=== PATIENT | male | born 1970 | race Two or more races ===

== ENCOUNTER 2021-04-19 22:35 | Inpatient (IN) | payer MEDICARE, OTHER ==
[~2021-04-19] VITALS: Ht 165.1 cm; Wt 65.8 kg
--- NOTE | 2021-04-19 22:55 | NUR ---
Dr. Cook at bedside for MSE.
[2021-04-19] MEDS ORDERED: LACTULOSE 20 G/30 ML LIQUID UDC NG ONE (23:15)
--- NOTE | 2021-04-19 23:17 | NUR ---
Pt out of ER for CT.
[2021-04-19 23:30] LABS: CARBON DIOXIDE 25 mmol/L (21-32); CHLORIDE 99 mmol/L (98-107); CREATININE 0.6 mg/dL (0.6-1.3); GLUCOSE 238 mg/dL (74-106); HEMATOCRIT 39.7 % (36.7-47.1); MEAN CORPUSCULAR HEMOGLOBIN 35.1 uug (23.8-33.4); MEAN CORPUSCULAR VOLUME 98.8 fL (73.0-96.2); PLATELET COUNT (AUTO) 127 K/uL (152-348); POTASSIUM 3.2 mmol/L (3.5-5.1); UREA NITROGEN, BLOOD 5 mg/dL (7-18)
[2021-04-19 23:32] LABS: ETHANOL < 3 MG/DL (0-0)
[2021-04-19 23:36] LABS: ALANINE AMINOTRANSFERASE 24 U/L (16-63); ALKALINE PHOSPHATASE 97 U/L (50-136); ASPARTATE AMINOTRANSFERASE 44 U/L (15-37); BILIRUBIN,TOTAL 2.2 mg/dL (0.2-1.0); TOTAL PROTEIN, SERUM 6.9 g/dL (6.4-8.2)
[2021-04-19 23:37] LABS: ACETAMINOPHEN < 2.0 ug/mL (10-30)
[2021-04-20] MEDS ORDERED: LACTULOSE 20 G/30 ML LIQUID UDC ONE (00:18)
[2021-04-20] MEDS ORDERED: PANT40TA49 PO (00:40)
[2021-04-20] MEDS ORDERED: ACET-2154 PO (00:40)
[2021-04-20] MEDS ORDERED: IBUP100T54 PO (00:40)
[2021-04-20] MEDS ORDERED: BENA40TA8 PO (00:40)
[2021-04-20] MEDS ORDERED: INSU100I26 SQ ×2 (00:40→18:15)
--- NOTE | 2021-04-20 01:15 | NUR ---
Dr. Cook on panel call with Shani Wong NP. Patient accepted for admission to [facility], diagnosis: hepatic encephalopathy.
--- NOTE | 2021-04-20 01:15 | NUR ---
Called [facility] to page Shani Wong NP.
[2021-04-20] MEDS ORDERED: DEXTROSE 50% 50 ML DISP.SYRIN IV PRN (01:30)
[2021-04-20] MEDS ORDERED: MAGNESIUM HYDROXIDE 30 ML LIQUID UDC PO PRN (01:30)
[2021-04-20] MEDS ORDERED: Z GUARD REMEDY PASTE 57 GM TUBE TOP PRN (01:30)
[2021-04-20] MEDS ORDERED: ONDANSETRON 4 MG/2 ML VIAL IV PRN (01:30)
--- NOTE | 2021-04-20 01:32 | NUR ---
Report given to Rona LIRIANO Medsurg.
[2021-04-20 02:00] LABS: *BILIRUBIN,URIN NEGATIVE (NEGATIVE); *BLOOD, URINE NEGATIVE (NEGATIVE); *CLARITY,URINE CLEAR (CLEAR); *COLOR,URINE YELLOW (YELLOW); *KETONES,URINE NEGATIVE (NEGATIVE); *UROBILINOGEN,URINE >=8.0 E.U./dl (NORMAL); LEUKOCYTE ESTERASE ,URINE TRACE (NEGATIVE); NITRITE, URINE NEGATIVE (NEGATIVE); UGLUCOSE 2+ (NEGATIVE)
[2021-04-20 02:10] LABS: *AMPHETAMINE, URINE NEGATIVE (NEGATIVE); *CANNABINOID, URINE NEGATIVE (NEGATIVE); *COCCAINE, URINE NEGATIVE (NEGATIVE); *OPIATE, URINE NEGATIVE (NEGATIVE); *PHENCYCLIDINE SCREEN,URINE NEGATIVE (NEGATIVE)
[2021-04-20 02:15] LABS: BACTERIA,URINE MANY /HPF (NONE SEEN); RBC,URINE 0-3 /HPF (0-3)
[2021-04-20 03:30] VITALS: BP 145/92
--- NOTE | 2021-04-20 04:07 | NUR ---
Pt arrived in the unit at 0245 via gurney. Admitted to Med Surg for Hepatic Encephalopathy. AAO x2. On room air, no acute distress noted. Pertinent assessment done. Skin intact. Rapid influenza nasal aspirate sent to lab. IV on left forearm #20, patent and intact. Ascites noted. Generalized weakness noted. Safety measures maintained. Call light within reach. Will continue to monitor.
[2021-04-20] MEDS: PANTOPRAZOLE SODIUM 40 MG TABLET.DR PO SCH (06:15)
[2021-04-20] MEDS: BLOOD SUGAR DIAGNOSTIC 1 EACH STRIP VI SCH ×4 (06:36→20:22)
--- NOTE | 2021-04-20 08:30 | NUR ---
Patient received resting in bed. A&Ox2. On room air sating 96%. No c/o discomfort. Left forearm 20 gauge intact and flushed. Skin intact. Compliant with medication regimen. BS of 239 covered. Safety precautions in place. Will continue to monitor.
[2021-04-20] MEDS: LACTULOSE 20 G/30 ML LIQUID UDC PO SCH ×2 (08:36→16:58)
[2021-04-20] MEDS: AZITHROMYCIN 250 MG TABLET PO SCH (08:37)
[2021-04-20] MEDS: INSULIN REGULAR, HUMAN 300 UNIT/3 ML VIAL SQ PRN ×4 (08:40→20:20)
[2021-04-20 08:53] VITALS: BP 143/92
[2021-04-20] MEDS ORDERED: PANTOPRAZOLE SODIUM 40 MG TABLET.DR PO SCH (09:00)
[2021-04-20] MEDS ORDERED: AZITHROMYCIN 250 MG TABLET PO SCH (09:00)
[2021-04-20] MEDS ORDERED: BENAZEPRIL HCL 20 MG TABLET PO SCH (09:00)
[2021-04-20 13:45] VITALS: BP 141/69
[2021-04-20 16:20] VITALS: BP 136/81
[2021-04-20] MEDS ORDERED: INSU3INS6 SQ (18:08)
[2021-04-20] MEDS ORDERED: INSULIN GLARGINE,HUM 300 UNITS/3 ML CARTRIDGE SQ SCH (18:10)
[2021-04-20 20:15] VITALS: BP 143/84
[2021-04-20] MEDS ORDERED: ZOLPIDEM 5 MG TABLET PO PRN (21:00)
--- NOTE | 2021-04-20 21:00 | NUR ---
Plan of care explained; safety measures explained; call light within reach;
[2021-04-21 04:11] VITALS: BP 147/91
[2021-04-21] MEDS: BLOOD SUGAR DIAGNOSTIC 1 EACH STRIP VI SCH ×4 (06:20→20:27)
[2021-04-21] MEDS: PANTOPRAZOLE SODIUM 40 MG TABLET.DR PO SCH (06:20)
--- NOTE | 2021-04-21 06:21 | NUR ---
Pt rested well in between care; no acute distress; safety maintained; needs attended; VSS; continue to monitor; continue plan of care.
[2021-04-21 06:40] LABS: MEAN CORPUSCULAR HEMOGLOBIN 35.2 uug (23.8-33.4); PLATELET COUNT (AUTO) 155 K/uL (152-348)
[2021-04-21 06:59] LABS: ALANINE AMINOTRANSFERASE 24 U/L (16-63); ALKALINE PHOSPHATASE 113 U/L (50-136); ASPARTATE AMINOTRANSFERASE 65 U/L (15-37); BILIRUBIN,TOTAL 2.1 mg/dL (0.2-1.0); CARBON DIOXIDE 22 mmol/L (21-32); CHLORIDE 101 mmol/L (98-107); CHOLESTEROL 81 mg/dL (<200); CREATININE 0.6 mg/dL (0.6-1.3); GLUCOSE 196 mg/dL (74-106); HDL CHOLESTEROL 22 mg/dL (40-60); MAGNESIUM 1.5 mg/dL (1.8-2.4); POTASSIUM 3.2 mmol/L (3.5-5.1); TOTAL PROTEIN, SERUM 6.4 g/dL (6.4-8.2); TRIGLYCERIDES 50 MG/DL (30-150); UREA NITROGEN, BLOOD 5 mg/dL (7-18)
[2021-04-21] MEDS ORDERED: NEUTRA PHOS PACKET PO ONE (07:45)
[2021-04-21] MEDS ORDERED: POTASSIUM CHLORIDE 20 MEQ TAB.PRT.SR PO ONE (07:45)
[2021-04-21] MEDS ORDERED: MAGNESIUM OXIDE 400 MG TABLET PO ONE (07:45)
--- NOTE | 2021-04-21 08:00 | NUR ---
Pt is in no acute distress. Pt alert and oriented x 4. Discussed with pt that he will be going to the bathroom to have a bowel movement due to his lactulose for his increased ammonia level. Pt aware of plan and states that "i want my ammonia level to go down." Pt cooperative and agreeable with plan of care. Applied diaper per pt's request to prevent any accidents. IV intact. Pt on room air. with 97% saturation. Pt has good appetite. Noted lower abd hernia. Call light is within reach.
[2021-04-21] MEDS ORDERED: INSULIN GLARGINE,HUM 300 UNITS/3 ML CARTRIDGE SQ SCH ×2 (09:00)
[2021-04-21] MEDS: AZITHROMYCIN 250 MG TABLET PO SCH (09:00)
[2021-04-21] MEDS: LACTULOSE 20 G/30 ML LIQUID UDC PO SCH ×2 (09:02→17:04)
[2021-04-21] MEDS: BENAZEPRIL HCL 20 MG TABLET PO SCH (09:05)
[2021-04-21] MEDS: INSULIN REGULAR, HUMAN 300 UNIT/3 ML VIAL SQ PRN ×4 (09:07→20:32)
[2021-04-21] MEDS: INSULIN GLARGINE,HUM 300 UNITS/3 ML CARTRIDGE SQ SCH (09:09)
[2021-04-21 12:00] VITALS: BP 133/80
--- NOTE | 2021-04-21 16:32 | NUR ---
SW Consult Consult was ordered for homelessness support. Patient is a 51 year old White male who appears to be alert and oriented x4. SW spoke with patient over the phone due to patient being in isolation (COVID). SW gathered information from patient regarding his prior living arrangements and future living arrangements. SW discussed looking for shelters for possible placement after discharge. Plan: SW will follow up with shelters and inform patient of penitentiary information.
[2021-04-21 16:34] VITALS: BP 125/79
--- NOTE | 2021-04-21 17:51 | NUR ---
Pt had x 6 loose bm. PT's electrolytes supplemented as ordered by hospitalist and given as ordered. Pt is in no acute distress.
[2021-04-21 20:35] VITALS: BP 149/87
[2021-04-21] MEDS: ACETAMINOPHEN 325 MG TABLET PO PRN (20:46)
[2021-04-22 04:31] VITALS: BP 127/80
--- NOTE | 2021-04-22 05:31 | NUR ---
Slept good. Medicated once for complaint of abdominal pain with help. No further complaint presented. Had 2x BM per patient. All needs attended and met. No significant event reported. Continue care as planned.
[2021-04-22] MEDS: PANTOPRAZOLE SODIUM 40 MG TABLET.DR PO SCH (05:52)
[2021-04-22] MEDS: BLOOD SUGAR DIAGNOSTIC 1 EACH STRIP VI SCH ×4 (05:52→20:31)
[2021-04-22 07:22] LABS: HEMATOCRIT 38.2 % (36.7-47.1); MEAN CORPUSCULAR HEMOGLOBIN 34.7 uug (23.8-33.4); MEAN CORPUSCULAR VOLUME 99.3 fL (73.0-96.2); PLATELET COUNT (AUTO) 165 K/uL (152-348)
[2021-04-22 07:42] LABS: ALANINE AMINOTRANSFERASE 30 U/L (16-63); ALKALINE PHOSPHATASE 154 U/L (50-136); ASPARTATE AMINOTRANSFERASE 78 U/L (15-37); CARBON DIOXIDE 24 mmol/L (21-32); CHLORIDE 100 mmol/L (98-107); CREATININE 0.6 mg/dL (0.6-1.3); GLUCOSE 270 mg/dL (74-106); MAGNESIUM 1.8 mg/dL (1.8-2.4); POTASSIUM 3.6 mmol/L (3.5-5.1); TOTAL PROTEIN, SERUM 6.4 g/dL (6.4-8.2); UREA NITROGEN, BLOOD 5 mg/dL (7-18)
--- NOTE | 2021-04-22 07:57 | NUR ---
Received results of COVID PCR from lab with a positive result. Will notify MD. Patient continue to be on Covid19 unit and isolation per protocols. Continue to show no respiratory distress except for lump with painful to touch on the right side of the neck/cheek. Patient requested ice pack and given, along with Tylenol. Call lights within reach and bed at lowest position.
--- NOTE | 2021-04-22 08:00 | NUR ---
AWAKE ALERT AND ORIENTED X3 PACING IN ROOM WITH NO SS OF PAIN OR SOB, CONTINUE WITH BLOOD SUGAR MONITORING WITH NO SS OG HYPO OR HYPERGLYCEMIA
[2021-04-22] MEDS: AZITHROMYCIN 250 MG TABLET PO SCH (08:44)
[2021-04-22] MEDS: LACTULOSE 20 G/30 ML LIQUID UDC PO SCH ×2 (08:45→16:17)
[2021-04-22] MEDS: BENAZEPRIL HCL 20 MG TABLET PO SCH (08:45)
[2021-04-22] MEDS: INSULIN REGULAR, HUMAN 300 UNIT/3 ML VIAL SQ PRN ×4 (08:49→21:10)
[2021-04-22] MEDS: INSULIN GLARGINE,HUM 300 UNITS/3 ML CARTRIDGE SQ SCH (09:36)
[2021-04-22] MEDS: ACETAMINOPHEN 325 MG TABLET PO PRN ×2 (09:40→15:38)
[2021-04-22] MEDS: PROTEIN SUPPLEMENT (PROSTAT) 30 ML LIQUID PO SCH ×2 (11:40→16:18)
[2021-04-22 12:00] VITALS: BP 131/84
[2021-04-22] MEDS ORDERED: CEFTRIAXONE 1 G in IV DEXTROSE 5% 50 ML IV SCH (14:00)
--- NOTE | 2021-04-22 15:30 | NUR ---
SW Consult Consult was ordered for homelessness support. SW was following up with consult to help patient with homelessness resources. SW spoke with patient over the phone due to patient being in isolation (COVID). SAM informed patient of almost all of one shelters were located in [place]. Patient stated that he would like to return to previous [facility] which is [facility]. SAM informed patient of resource packet is left with nurse that has a list of other shelters in [place] as well as locations with hot showers and food distribution. Patient is agreeable to this plan. Patient will return to [facility], [address] [place] [address] . Homeless waiver will be signed by the patient and placed in the chart. Plan: SW will continue to monitor patient and contact [facility] to confirm patients return.
[2021-04-22 16:00] VITALS: BP 136/83
--- NOTE | 2021-04-22 17:53 | NUR ---
Patient in bed resting, oxygen saturating at 97% on RA. Alert, oriented x 4. Patient compliant with all medications and care. Patient complained of pain around neck/cheek area. Intervened with ice pack and Tylenol. No respiratory distress. Call lights within reach and bed locked at lowest position.
[2021-04-22 20:30] VITALS: BP 142/87
[2021-04-22] MEDS: HYDROCODONE/APAP 10-325 MG TABLET PO PRN (20:58)
--- NOTE | 2021-04-22 20:58 | NUR ---
Patient in bed AALOx4.On RA.No s/s of distress noted. C/o pain on right Jaw noted with swelling and redness. notified with new order received noted and carried out.[place] given with good effect. Placed order for CT face/neck with out contrast. Call light with in reach. Will continue to monitor.
[2021-04-23 04:40] VITALS: BP 121/70
[2021-04-23] MEDS: PANTOPRAZOLE SODIUM 40 MG TABLET.DR PO SCH (06:02)
[2021-04-23] MEDS: HYDROCODONE/APAP 10-325 MG TABLET PO PRN ×3 (06:13→23:31)
[2021-04-23] MEDS: BLOOD SUGAR DIAGNOSTIC 1 EACH STRIP VI SCH ×4 (06:32→20:38)
[2021-04-23 07:06] LABS: HEMATOCRIT 38.7 % (36.7-47.1); MEAN CORPUSCULAR VOLUME 98.8 fL (73.0-96.2); PLATELET COUNT (AUTO) 181 K/uL (152-348)
[2021-04-23 07:40] LABS: ALANINE AMINOTRANSFERASE 30 U/L (16-63); ALKALINE PHOSPHATASE 141 U/L (50-136); ASPARTATE AMINOTRANSFERASE 73 U/L (15-37); BILIRUBIN,TOTAL 2.4 mg/dL (0.2-1.0); CARBON DIOXIDE 26 mmol/L (21-32); CHLORIDE 98 mmol/L (98-107); CREATININE 0.6 mg/dL (0.6-1.3); GLUCOSE 183 mg/dL (74-106); MAGNESIUM 1.6 mg/dL (1.8-2.4); POTASSIUM 3.8 mmol/L (3.5-5.1); TOTAL PROTEIN, SERUM 7.2 g/dL (6.4-8.2); UREA NITROGEN, BLOOD 6 mg/dL (7-18)
[2021-04-23] MEDS: LACTULOSE 20 G/30 ML LIQUID UDC PO SCH ×2 (08:26→16:42)
[2021-04-23] MEDS: PROTEIN SUPPLEMENT (PROSTAT) 30 ML LIQUID PO SCH ×3 (08:26→16:49)
[2021-04-23] MEDS: AZITHROMYCIN 250 MG TABLET PO SCH (08:27)
[2021-04-23] MEDS: BENAZEPRIL HCL 20 MG TABLET PO SCH (08:27)
[2021-04-23] MEDS: INSULIN GLARGINE,HUM 300 UNITS/3 ML CARTRIDGE SQ SCH (08:50)
--- NOTE | 2021-04-23 09:03 | NUR ---
received this morning awake, alert and able to make needs known watching tv. right jaw redness and swelling noted ice pack on affected area. pt verbalized pain medications helps. denies sob/difficulty breathing. comfortable on room air sat 96%. bed low and locked siderails up x2. call light and personal belongings in reach. cont to monitor.
--- NOTE | 2021-04-23 09:12 | NUR ---
dr. oliveros on the floor and report given
[2021-04-23] MEDS ORDERED: MAGNESIUM OXIDE 400 MG TABLET PO ONE (09:30)
[2021-04-23] MEDS: VANCOMYCIN IV 1,000 MG in IV DEXTROSE 5% 250 ML IV SCH ×2 (11:02→22:02)
[2021-04-23] MEDS: RIFAXIMIN 550 MG TABLET PO SCH ×2 (11:02→20:30)
[2021-04-23] MEDS: ACETAMINOPHEN 325 MG TABLET PO PRN ×2 (11:02→20:48)
[2021-04-23] MEDS: ACIDOPHILUS/BULGARICUS CHEW TAB PO SCH ×3 (11:02→21:04)
[2021-04-23] MEDS: INSULIN REGULAR, HUMAN 300 UNIT/3 ML VIAL SQ PRN ×3 (11:29→20:41)
[2021-04-23 12:00] VITALS: BP 132/87
[2021-04-23] MEDS ORDERED: PIPERACILLIN SODIUM/TAZOBACTAM 3.375 G in IV DEXTROSE 5% 50 ML IV SCH (12:00)
[2021-04-23] MEDS ORDERED: POTASSIUM PHOSPHATE MM 15 MMOL in IV NORMAL SALINE 250 ML IV ONE ×2 (12:00→13:00)
[2021-04-23] MEDS: PIPERACILLIN SODIUM/TAZOBACTAM 3.375 G in IV DEXTROSE 5% 50 ML IV SCH ×2 (13:38→18:00)
[2021-04-23 16:00] VITALS: BP 138/85
--- NOTE | 2021-04-23 19:04 | NUR ---
resting comfortably. no s/sx of pain or facial grimacing. on room air sat 96%. no sob noted. on iv vancomycin and zosyn no adverse/allergic reaction noted. safety measures kept. call light in reach.
[2021-04-23 20:00] VITALS: BP 147/89
--- NOTE | 2021-04-23 21:28 | NUR ---
Received pt awake on bed with no respiratory distress noted. On room air saturating at 95%. Right jaw redness and swelling still noted, ice pack on affected area. Tylenol PRN given. Accuheck done, BS 220 with insulin given. IV line on L FA and R FA still patent and intact. All needs attended. Call light placed within reach. Will continue to monitor.
[2021-04-24] MEDS: PIPERACILLIN SODIUM/TAZOBACTAM 3.375 G in IV DEXTROSE 5% 50 ML IV SCH ×3 (00:20→13:15)
[2021-04-24 04:00] VITALS: BP 139/88
[2021-04-24] MEDS: ACIDOPHILUS/BULGARICUS CHEW TAB PO SCH ×2 (05:50→13:15)
[2021-04-24] MEDS: PANTOPRAZOLE SODIUM 40 MG TABLET.DR PO SCH (06:00)
[2021-04-24] MEDS: HYDROCODONE/APAP 10-325 MG TABLET PO PRN (06:27)
[2021-04-24] MEDS: BLOOD SUGAR DIAGNOSTIC 1 EACH STRIP VI SCH ×2 (06:35→11:20)
[2021-04-24 07:07] LABS: MEAN CORPUSCULAR HEMOGLOBIN 34.8 uug (23.8-33.4); MEAN CORPUSCULAR VOLUME 98.5 fL (73.0-96.2); PLATELET COUNT (AUTO) 171 K/uL (152-348)
--- NOTE | 2021-04-24 07:25 | NUR ---
Pt slept intermittently throughout the night, no respiratory distress noted. On room air saturating at 96%. Right jaw redness and swelling still noted, ice pack on affected area. [place] PRN given x2 and noted effective. Accuheck done, BS 132. All needs attended. Call light placed within reach. Frequent visual checks done. Will endorse to next shift for continuity of care.
[2021-04-24 07:33] LABS: ALANINE AMINOTRANSFERASE 29 U/L (16-63); ALKALINE PHOSPHATASE 158 U/L (50-136); ASPARTATE AMINOTRANSFERASE 96 U/L (15-37); BILIRUBIN,TOTAL 1.8 mg/dL (0.2-1.0); CARBON DIOXIDE 26 mmol/L (21-32); CHLORIDE 101 mmol/L (98-107); CREATININE 0.6 mg/dL (0.6-1.3); GLUCOSE 141 mg/dL (74-106); MAGNESIUM 1.7 mg/dL (1.8-2.4); PHOSPHOROUS 2.2 mg/dL (2.5-4.9); POTASSIUM 3.7 mmol/L (3.5-5.1); TOTAL PROTEIN, SERUM 6.6 g/dL (6.4-8.2); UREA NITROGEN, BLOOD 3 mg/dL (7-18)
[2021-04-24] MEDS: LACTULOSE 20 G/30 ML LIQUID UDC PO SCH (08:58)
[2021-04-24] MEDS: PROTEIN SUPPLEMENT (PROSTAT) 30 ML LIQUID PO SCH ×2 (08:59→11:22)
[2021-04-24] MEDS: BENAZEPRIL HCL 20 MG TABLET PO SCH (08:59)
[2021-04-24] MEDS: RIFAXIMIN 550 MG TABLET PO SCH (09:00)
[2021-04-24] MEDS: INSULIN REGULAR, HUMAN 300 UNIT/3 ML VIAL SQ PRN ×2 (09:05→11:20)
[2021-04-24] MEDS: INSULIN GLARGINE,HUM 300 UNITS/3 ML CARTRIDGE SQ SCH (09:06)
[2021-04-24] MEDS ORDERED: MAGNESIUM OXIDE 400 MG TABLET PO ONE (09:30)
[2021-04-24] MEDS ORDERED: POTASSIUM PHOSPHATE MM 15 MMOL in IV NORMAL SALINE 250 ML IV ONE (10:00)
[2021-04-24 11:05] VITALS: BP 150/96
[2021-04-24] MEDS: VANCOMYCIN IV 1,000 MG in IV DEXTROSE 5% 250 ML IV SCH (11:20)
--- NOTE | 2021-04-24 14:11 | NUR ---
Clinical Social Work Note Patient is a 51 year old White male who appears to be alert and oriented x4. Patient is currently under isolation due to COVID. SAM received a call from Devante LIRIANO that patient was deciding to leave the hospital against medical advice and was in need to transportation to senior living. [place] [address] . Homeless waiver will be signed by the patient and placed in the chart. SAM has provided Devante LIRIANO with resource which includes a list of other shelters in [place] as well as locations with hot showers and food distribution. SAM provided Devante LIRIANO, with tap card for patient as well as clothing.
--- NOTE | 2021-04-24 14:30 | NUR ---
patient left against medical advise, dr Esteban is aware, brian infection control is aware, patient denied to have written instruction, verbal instructions given to patient regarding covid infection, quarantine instructions, patient verbalized understanding of it, patient was given proper clothes, slippers, food, sandwich, juice, and soaks, extra masks, IV removed from both arms. Addendum: 04/24/21 at 1457 by NATHALIA FRY RN, RN Patient provided with tap card, and information about sheltering. Addendum: 04/24/21 at 1501 by NATHALIA FRY RN RN patient is alert ,oriented x4, no sob, resp even nonlabored, skin warm and dry to touch, no respiratory distress noted, tolerating adls at room air very well, ambulatory, self care. no events noted.
== END 2021-04-24 14:30 | disposition left against medical advice (07) | DRG 432 ==
LOC: ER 22:41 → MEDSURG3 04-20 02:01 → EDBD 04-20 02:01 → MEDSURG3 04-20 03:10
PROVIDERS: ADMIT Hospitalist; ATTEND Internal Medicine
DX: K70.40 Alcoholic hepatic failure without coma (principal); J12.82 Pneumonia due to coronavirus disease 2019; E43 Unspecified severe protein-calorie malnutrition; U07.1 COVID-19; G92.8 Other toxic encephalopathy; E87.1 Hypo-osmolality and hyponatremia; K12.2 Cellulitis and abscess of mouth; F10.188 Alcohol abuse with other alcohol-induced disorder; L03.221 Cellulitis of neck; E87.6 Hypokalemia; E83.42 Hypomagnesemia; E83.39 Other disorders of phosphorus metabolism; I10 Essential (primary) hypertension; D69.6 Thrombocytopenia, unspecified; E11.9 Type 2 diabetes mellitus without complications; M62.50 Muscle wasting and atrophy, not elsewhere classified, unspecified site; E88.09 Other disorders of plasma-protein metabolism, not elsewhere classified; Z68.24 Body mass index [BMI] 24.0-24.9, adult; Z20.822 Contact with and (suspected) exposure to COVID-19; K70.30 Alcoholic cirrhosis of liver without ascites; K11.20 Sialoadenitis, unspecified; E11.65 Type 2 diabetes mellitus with hyperglycemia; Z91.14 Patient's other noncompliance with medication regimen; Z79.4 Long term (current) use of insulin
CPT/HCPCS: 36415; 70450; 70486; 70490; 71045; 83735; 84100; 84443; 85025; 87040; 87077; 87086; 87400; 97161; A4663; C1758; G0378; G0480; J0696; J1815; J2543; J3370; J3490; J7040; J7050; J7060; Q0144; U0003